=== PATIENT | female | born 1965 | race Caucasian/White ===

== ENCOUNTER → 2016-06-12 | Outpatient (CLI) | payer OTHER ==
--- NOTE | 2016-06-12 11:49 | RAD ---
Indication abnormal labs. Absence disease. Grayscale imaging targeted to the thyroid was performed. No prior imaging is available. The right lobe of the thyroid measures 5.2 x 1.3 x 1.3 cm and appears unremarkable. The isthmus appears normal. The left lobe of the thyroid measures 4.7 x 1 x 1.2 cm. There is a hypoechoic 6 mm nodule in the midportion of the gland. In the caudal portion of the left lobe there is a moderately complex 1 cm nodule. IMPRESSION: 2 nodules in the left lobe of the thyroid the largest measuring 1 cm
== END | disposition home or self-care (01) ==
LOC: US 10:59
PROVIDERS: ATTEND Family Medicine
DX: E04.2 Nontoxic multinodular goiter (principal); J32.0 Chronic maxillary sinusitis; K64.9 Unspecified hemorrhoids; K44.9 Diaphragmatic hernia without obstruction or gangrene
CPT/HCPCS: 76536

== ENCOUNTER → 2019-07-05 | Outpatient (CLI) | payer OTHER ==
--- NOTE | 2019-07-05 16:55 | [facility]IC ---
Bilateral digital screening mammograms: Reason for examination: Routine screening. Comparison is made to previous studies dated 06/22/2018 and 06/16/2017. Interpretation was made with the benefit of CAD. The skin and nipples show no abnormalities. No abnormal axillary lymph nodes are seen. The breast parenchyma shows scattered fibroglandular density. (Breast density: Category B.) There are no dominant masses, suspicious calcifications or architectural distortions. A few benign-appearing calcifications are again seen in the left breast. Impression: No evidence of malignancy. Recommend routine screening. BI-RADS Category 2: Benign. "Our facility is accredited by the [employer] Mammography Program." This patient's information has been entered into a reminder system for the patient to be notified with the results of her examination and a target date for the next mammogram. Electronically signed by: Fide Benitez MD (07/05/2019 4:52 PM) [id number]
== END | disposition home or self-care (01) ==
LOC: KCIC MAMMO 12:53
PROVIDERS: ATTEND Internal Medicine
DX: Z12.31 Encounter for screening mammogram for malignant neoplasm of breast (principal); N64.89 Other specified disorders of breast
CPT/HCPCS: 77067